=== PATIENT | female | born 1965 | race Caucasian/White ===

== ENCOUNTER 2017-03-01 15:30 | Inpatient (IN) | payer OTHER ==
[~2017-03-01] VITALS: Ht 160 cm; Wt 84.6 kg
[~2017-03-01 15:30] MED LIST: AMOX1TAB64 PO; LEVO25TA4 PO; NALT1TAB PO; OXYC1TAB7 PO; POLY17PO5 PO
[2017-03-01] MEDS ORDERED: MORPHINE SULFATE 4 MG/ML, 1ML ONE (15:52)
[2017-03-01] MEDS ORDERED: ONDANSETRON 2MG/ML, 2ML ONE (15:52)
[2017-03-01] MEDS ORDERED: ONDANSETRON 2MG/ML, 2ML IVPush ONE (16:00)
[2017-03-01] MEDS ORDERED: MORPHINE SULFATE 4 MG/ML, 1ML IVPush PRN (16:00)
[2017-03-01] MEDS ORDERED: SODIUM CHLORIDE FLUSH 10ML SYR IVF ONE (16:00)
[2017-03-01] MEDS ORDERED: SODIUM CHLORIDE 0.9% 1,000ML IVBOLUS ONE (16:00)
[2017-03-01 16:09] LABS: ASPARTATE AMINO TRANSFERASE 16 U/L (15-37); BLOOD UREA NITROGEN 8 mg/dL (7-18)
[2017-03-01] MEDS ORDERED: OMNIPAQUE 350 MG/ML, 100ML BOTTLE ONE (17:14)
[2017-03-01] MEDS ORDERED: HYDROmorphone 1 MG/ML, 1ML ONE (17:50)
[2017-03-01] MEDS ORDERED: METRONIDAZOLE PMX 500MG/100ML 100 ML ONE (17:50)
[2017-03-01] MEDS ORDERED: HYDROmorphone 1 MG/ML, 1ML IV ONE (18:00)
[2017-03-01] MEDS ORDERED: AMPICILLIN/SULBACTAM 3 GM in SODIUM CHLORIDE 0.9% 100 ML IV ONE (18:00)
[2017-03-01] MEDS ORDERED: METRONIDAZOLE PMX 500MG/100ML 100 ML IV ONE (18:00)
[2017-03-01 20:00] VITALS: BP 144/96
[2017-03-01] MEDS ORDERED: ENOXAPARIN 40 MG/0.4 ML SQ SCH (20:00)
[2017-03-01] MEDS ORDERED: POLYETHYLENE GLYCOL 17 GM PACKET PO PRN (20:00)
[2017-03-01] MEDS ORDERED: DOCUSATE 100 MG CAPSULE PO PRN (20:00)
[2017-03-01] MEDS ORDERED: hydrALAzine 20 MG/ML, 1ML IVPush PRN (20:00)
[2017-03-01] MEDS ORDERED: BISACODYL 10 MG SUPP PR PRN (20:00)
[2017-03-01] MEDS: SODIUM CHLORIDE 0.9% 1,000 ML IV SCH (20:18)
[2017-03-01] MEDS: METRONIDAZOLE PMX 500MG/100ML 100 ML IV SCH (20:18)
[2017-03-01] MEDS: KETOROLAC 30 MG/1 ML IVPush PRN (20:25)
[2017-03-01] MEDS: CEFTRIAXONE 2 GM in SODIUM CHLORIDE 0.9% 50 ML IV SCH (21:24)
[2017-03-02 01:11] VITALS: BP 122/70
[2017-03-02] MEDS: TRAZODONE 50MG TABLET PO PRN ×2 (01:44→23:07)
[2017-03-02] MEDS: KETOROLAC 30 MG/1 ML IVPush PRN ×3 (01:44→22:15)
[2017-03-02] MEDS: METRONIDAZOLE PMX 500MG/100ML 100 ML IV SCH ×3 (04:50→21:44)
[2017-03-02] MEDS: SODIUM CHLORIDE 0.9% 1,000 ML IV SCH ×3 (04:50→18:20)
[2017-03-02 05:33] LABS: ASPARTATE AMINO TRANSFERASE 21 U/L (15-37); BLOOD UREA NITROGEN 9 mg/dL (7-18)
[2017-03-02] MEDS: ACETAMINOPHEN 325 MG TABLET PO PRN (06:51)
[2017-03-02 06:57] VITALS: BP 141/87
[2017-03-02] MEDS: LEVOTHYROXINE 25 MCG TABLET PO SCH (09:04)
[2017-03-02] MEDS: HYDROcodone/APAP 5/325 TABLET PO PRN ×3 (11:54→20:11)
[2017-03-02 14:54] VITALS: BP 136/84
[2017-03-02 20:00] VITALS: BP 149/87
[2017-03-02] MEDS: CEFTRIAXONE 2 GM in SODIUM CHLORIDE 0.9% 50 ML IV SCH (21:44)
[2017-03-02] MEDS: ENOXAPARIN 40 MG/0.4 ML SQ SCH (21:44)
[2017-03-03 00:20] VITALS: BP 161/94
[2017-03-03] MEDS: SODIUM CHLORIDE 0.9% 1,000 ML IV SCH ×4 (00:22→18:30)
[2017-03-03] MEDS: TRAZODONE 50MG TABLET PO PRN (00:22)
[2017-03-03] MEDS: METRONIDAZOLE PMX 500MG/100ML 100 ML IV SCH ×3 (05:22→22:06)
[2017-03-03 08:00] VITALS: BP 135/89
[2017-03-03] MEDS: LEVOTHYROXINE 25 MCG TABLET PO SCH (09:00)
[2017-03-03] MEDS: ENOXAPARIN 40 MG/0.4 ML SQ SCH (10:30)
[2017-03-03] MEDS: ONDANSETRON 2MG/ML, 2ML IVPush PRN ×2 (11:32→18:30)
[2017-03-03] MEDS ORDERED: MORPHINE SULFATE 4 MG/ML, 1ML IVPush PRN (12:30)
[2017-03-03 13:05] VITALS: BP 154/87
[2017-03-03] MEDS: ACETAMINOPHEN 325 MG TABLET PO PRN (17:01)
[2017-03-03 19:54] VITALS: BP 130/86
[2017-03-03] MEDS: CEFTRIAXONE PMX 2GM/50ML 50 ML IV SCH (21:03)
[2017-03-04 00:35] VITALS: BP 127/80
[2017-03-04] MEDS: SODIUM CHLORIDE 0.9% 1,000 ML IV SCH ×3 (01:24→12:56)
[2017-03-04] MEDS: METRONIDAZOLE PMX 500MG/100ML 100 ML IV SCH ×3 (04:40→21:16)
[2017-03-04 06:03] LABS: BLOOD UREA NITROGEN 5 mg/dL (7-18)
[2017-03-04] MEDS: LEVOTHYROXINE 25 MCG TABLET PO SCH (08:00)
[2017-03-04 09:24] VITALS: BP 162/92
[2017-03-04] MEDS: ENOXAPARIN 40 MG/0.4 ML SQ SCH (10:30)
[2017-03-04] MEDS: KETOROLAC 30 MG/1 ML IVPush PRN (11:18)
[2017-03-04] MEDS ORDERED: LIDOCAINE 2%, 20ML ONE (12:13)
[2017-03-04 14:53] VITALS: BP 154/88
[2017-03-04] MEDS: CEFTRIAXONE PMX 2GM/50ML 50 ML IV SCH (20:33)
[2017-03-04 21:11] VITALS: BP 156/104
[2017-03-04 21:14] VITALS: BP 156/95
[2017-03-04 22:56] VITALS: BP 141/89
[2017-03-05] MEDS: KETOROLAC 30 MG/1 ML IVPush PRN (00:41)
[2017-03-05] MEDS: SODIUM CHLORIDE 0.9% 1,000 ML IV SCH ×2 (00:42→08:18)
[2017-03-05 02:30] VITALS: BP 141/91
[2017-03-05] MEDS: METRONIDAZOLE PMX 500MG/100ML 100 ML IV SCH (05:14)
[2017-03-05 07:54] VITALS: BP 134/85
[2017-03-05] MEDS: LEVOTHYROXINE 25 MCG TABLET PO SCH (08:18)
[2017-03-05] MEDS ORDERED: METR500T PO (08:55)
[2017-03-05] MEDS ORDERED: CIPR500T3 PO (08:55)
[2017-03-05] MEDS ORDERED: OXYC-302 PO (08:55)
== END 2017-03-05 11:55 | disposition home or self-care (01) | DRG 854 ==
LOC: ED 17:55 → EDIP 17:56 → ED 18:14 → 4WST 18:37 → DCLOUNGE 03-05 10:30
PROVIDERS: ADMIT Internal Medicine; ATTEND Family Medicine
PROC: 0W9F3ZX Drainage of Abdominal Wall, Percutaneous Approach, Diagnostic (ICD-10-PCS; principal; 2017-03-04)
DX: A41.9 Sepsis, unspecified organism (principal); L03.311 Cellulitis of abdominal wall; L02.211 Cutaneous abscess of abdominal wall; E88.09 Other disorders of plasma-protein metabolism, not elsewhere classified; D75.89 Other specified diseases of blood and blood-forming organs; E03.9 Hypothyroidism, unspecified; Z90.710 Acquired absence of both cervix and uterus; Z90.49 Acquired absence of other specified parts of digestive tract
CPT/HCPCS: 10030; 36415; 74177; 76705; 76942; 80048; 80053; 80076; 81003; 82040; 83735; 84439; 84443; 85025; 87070; 87075; 87077; 87186; 87205; 96361; 96374; 96375; J0696; J1170; J1650; J1885; J2405; J3490; Q9967; J7030

== ENCOUNTER 2020-12-06 17:07 | Emergency (ER) | payer OTHER ==
[~2020-12-06] VITALS: Ht 160 cm; Wt 82.5 kg
[~2020-12-06 17:07] MED LIST changes: +CIPR500T4 PO; +METR500T PO; +OXYC1TAB14 PO
--- NOTE | 2020-12-06 17:34 | NUR ---
PT AMBULATORY TO ROOM 13 W/ C/O CAMPOS AND HTN X 4 DAYS. PT STATES SHE HAS HX HASHIMOTOS AND HTN. PT STATES BP 180/120. PT STATES HER DBP HAS NOT BEEN BELOW 100. PT RESTING ON GURNEY. NADN. MONITORS APPLIED. BP IMPROVED IN ROOM. BP CYCLING Q15 MIN FOR ACCURATE ASSESSMENT.
[2020-12-06 18:20] LABS: BASOPHILS % (AUTO) 1 % (0-1); EOSINOPHILS % (AUTO) 3 % (1-7); LYMPHOCYTES % (AUTO) 32 % (22-44); MEAN CORPUSCULAR HGB CONC 34.5 g/dL (32.4-35.8); MONOCYTES % (AUTO) 6 % (2-9); NEUTROPHILS % (AUTO) 59 % (42-75); PLATELET COUNT 333 x10^3/uL (130-400); RED BLOOD COUNT 4.57 x10^6/uL (3.82-5.3); RED CELL DISTRIBUTION WIDTH 13.2 % (9.6-15.2)
[2020-12-06 18:21] LABS: MD NO
[2020-12-06 18:33] LABS: ALBUMIN 3.5 g/dL (3.4-5.0); ANION GAP 4 mmol/L (5-15); CALCIUM 8.9 mg/dL (8.5-10.1); CHLORIDE 110 mmol/L (98-107); CREATININE 1.05 mg/dL (0.55-1.02)
[2020-12-06 18:37] LABS: TROPONIN I < 0.015 ng/mL (0.000-0.045)
--- NOTE | 2020-12-06 18:54 | NUR ---
PT CHART REVIEWED AND PLACED FOR RECHECK.
[2020-12-06] MEDS ORDERED: ATENOLOL 25 MG TABLET PO STA (19:26)
[2020-12-06] MEDS ORDERED: LISINOPRIL 10 MG TABLET ONE (19:26)
--- NOTE | 2020-12-06 19:29 | NUR ---
PT RESTING ON GURNEY. NADN. BP REMAINS ELEVATED. ERP AWARE.
[2020-12-06] MEDS ORDERED: LISINOPRIL 10 MG TABLET PO ONE (19:30)
--- NOTE | 2020-12-06 20:23 | NUR ---
PT CHART REVIEWED AND PLACED FOR RECHECK.
--- NOTE | 2020-12-06 20:44 | NUR ---
PT SBP NOTED TO BE 207/87. PT TENSED DURING BP CHECK. ERP DR. THORNTON NOTIFIED.
--- NOTE | 2020-12-06 20:52 | NUR ---
REPORT GIVEN TO SIVA MONTANEZ.
[2020-12-06] MEDS ORDERED: ENALAPRILAT 1.25 MG/ML, 2ML IV ONE (21:00)
[2020-12-06] MEDS ORDERED: ENALAPRILAT 1.25 MG/ML, 1ML ONE (21:01)
--- NOTE | 2020-12-06 21:14 | NUR ---
REPORT FROM SIVA MADISON. PT SITTING UP IN [facility] NOTED. REPORTS 5/10 CAMPOS, WITH NO CHANGE IN CAMPOS DESPITE MEDS. +PHOTOPHOBIA, BASELINE. DENIES DIPLOPIA, CHANGES IN SPEECH, OR WEAKNESS. IV ESTABLISHED. ECG MONITORING APPLIED. PT MEDICATED PER EMAR FOR HTN.
--- NOTE | 2020-12-06 21:43 | NUR ---
BP IMPROVED. ERP AWARE. CHART UP FOR RECHECK.
--- NOTE | 2020-12-06 22:24 | NUR ---
BP CONTINUES TO IMPROVE. PT REPORTS LITTLE CHANGE IN CAMPOS THOUGH STATES "ITS FINE". DENIES NEED FOR PAIN MEDICATIONS.
--- NOTE | 2020-12-06 23:00 | NUR ---
DC EDUCATION PROVIDED, PT DEMONSTRATES UNDERSTANDING. PT AMBULATED STEADILY TO DC WITH RN.
[2020-12-06 23:21] VITALS: BP 168/95
== END 2020-12-06 23:23 | disposition home or self-care (01) ==
LOC: ED 21:44
DX: I10 Essential (primary) hypertension (principal); G43.C0 Periodic headache syndromes in child or adult, not intractable; Z86.73 Personal history of transient ischemic attack (TIA), and cerebral infarction without residual deficits
CPT/HCPCS: 36415; 70450; 80048; 82040; 84484; 85025; 93005; 96374